=== PATIENT | female | born 1960 | race Native Hawaiian/Other Pacific Islander ===

== ENCOUNTER 2016-04-13 18:25 | Inpatient (IN) | payer OTHER ==
[~2016-04-13] VITALS: Ht 167.6 cm; Wt 136.1 kg
[~2016-04-13 18:25] MED LIST: LOTENSIN HCT1 TA2 PO; PREVACID30 MG PO
[2016-04-13 18:30] VITALS: BP 155/98; TEMP 97.8
[2016-04-13 19:08] LABS: PLATELET COUNT 351 K/uL (152-353)
[2016-04-13 20:32] LABS: POTASSIUM 3.7 mmol/L (3.6-5.2); SODIUM 136 mmol/L (136-145)
[2016-04-14 00:50] VITALS: BP 147/78; TEMP 99; Ht 167.6 cm; Wt 136.1 kg
[2016-04-14 04:00] VITALS: BP 123/60; TEMP 98.4
[2016-04-14 07:54] VITALS: BP 123/73; TEMP 98.4
[2016-04-14 11:11] LABS: PLATELET COUNT 329 K/uL (152-353)
[2016-04-14 11:13] LABS: POTASSIUM 3.9 mmol/L (3.6-5.2); SODIUM 133 mmol/L (136-145)
[2016-04-14 12:29] VITALS: BP 135/72; TEMP 98.3
[2016-04-14 15:46] VITALS: BP 121/69; TEMP 99
[2016-04-14 19:44] VITALS: BP 129/64; TEMP 99.4
[2016-04-15] VITALS: BP 125/59; TEMP 99.4
[2016-04-15 04:00] VITALS: BP 119/58; TEMP 98.4
[2016-04-15 06:44] LABS: PLATELET COUNT 297 K/uL (152-353)
[2016-04-15 07:03] LABS: POTASSIUM 3.2 mmol/L (3.6-5.2); SODIUM 137 mmol/L (136-145)
[2016-04-15 08:02] VITALS: BP 120/77; TEMP 98.2
[2016-04-15 11:59] VITALS: BP 144/82; BP 166/72; TEMP 98.5; TEMP 98.7
[2016-04-15 16:00] VITALS: BP 157/81; TEMP 99.4
[2016-04-15 20:00] VITALS: BP 156/79; TEMP 99
[2016-04-16 00:01] VITALS: BP 135/63; TEMP 99
[2016-04-16 04:00] VITALS: BP 149/75; TEMP 99.4
[2016-04-16 04:28] LABS: PLATELET COUNT 282 K/uL (152-353)
[2016-04-16 04:46] LABS: POTASSIUM 3.7 mmol/L (3.6-5.2); SODIUM 137 mmol/L (136-145)
[2016-04-16 08:10] VITALS: BP 146/51; TEMP 99.1
[2016-04-16 12:00] VITALS: BP 141/77; TEMP 99.1
[2016-04-16 16:00] VITALS: BP 156/81; TEMP 98.8
[2016-04-16 20:00] VITALS: BP 166/87; TEMP 98.4
[2016-04-17 00:13] VITALS: BP 120/62; TEMP 98.2
[2016-04-17 04:00] VITALS: BP 148/80; TEMP 98.4
[2016-04-17 05:18] LABS: PLATELET COUNT 300 K/uL (152-353)
[2016-04-17 06:11] LABS: POTASSIUM 3.6 mmol/L (3.6-5.2); SODIUM 136 mmol/L (136-145)
[2016-04-17 08:00] VITALS: BP 142/85; TEMP 98.6
[2016-04-17 12:00] VITALS: BP 175/85; TEMP 98
== END 2016-04-17 14:15 | disposition home or self-care (01) | DRG 440 ==
LOC: ED 18:25 → MED/SURG 22:10
PROVIDERS: Family Medicine
DX: K85.80 Other acute pancreatitis without necrosis or infection (principal); E86.0 Dehydration; R11.2 Nausea with vomiting, unspecified; E66.8 Other obesity; K59.09 Other constipation
CPT/HCPCS: 36415; 36600; 80053; 80061; 82150; 82805; 83036; 83690; 83735; 85027; 96361; 96372; 96374; 99284; J0744; J1170; J1650; J1885; J2175; J2405; J2550; J2765; J3490; Q9963

== ENCOUNTER 2017-08-29 09:00 | Outpatient (CLI) | payer BC | END 2017-08-29 16:00 | disposition home or self-care (01) | LOC: RAD 09:00 | DX: M54.12 Radiculopathy, cervical region (principal) ==